=== PATIENT | female | born 1995 | race Caucasian/White ===

== ENCOUNTER 2017-12-15 22:52 | Emergency (ER) | payer MEDICAID, SELFPAY ==
[2017-12-15 22:53] VITALS: BP 165/80; PULSE 94; RESP 16; TEMP 36.4; O2SAT 97; BMI 60.2
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
== END 2017-12-15 23:28 | disposition home or self-care (01) ==
LOC: ED 23:22
PROVIDERS: Emergency Provider Emergency Medicine; Family Provider Student in an Organized Health Care Education/Training Program; PCP Student in an Organized Health Care Education/Training Program
DX: S16.1XXA Strain of muscle, fascia and tendon at neck level, initial encounter (principal); V89.2XXA Person injured in unspecified motor-vehicle accident, traffic, initial encounter; Y93.9 Activity, unspecified; Y92.9 Unspecified place or not applicable; I10 Essential (primary) hypertension; K58.9 Irritable bowel syndrome, unspecified; F90.9 Attention-deficit hyperactivity disorder, unspecified type; R73.03 Prediabetes; Z90.49 Acquired absence of other specified parts of digestive tract; Z79.84 Long term (current) use of oral hypoglycemic drugs; Z79.899 Other long term (current) drug therapy
CPT/HCPCS: 99282

== ENCOUNTER 2018-04-14 20:29 | Emergency (ER) | payer MEDICAID, SELFPAY ==
[2018-04-14 20:29] VITALS: BP 146/86; PULSE 99; RESP 16; TEMP 36.2; O2SAT 96; BMI 52.7
--- NOTE | 2018-04-14 21:42 | ED.VISSUMM ---
- ER Visit Summary Date of Service: 04/14/18 Chief Complaint: Foreign body sensation throat History of Present Illness: The patient is a 22 F who states she took for large pills. She vomited and only 3 of the pills came up. She is complaining of pain that she localizes right anterior neck at the level of the larynx. She denies trouble with speech or swallowing. She denies change in voice. She denies drooling. She is had something to drink and eat since. She believes that the pill was still stuck. Physical Examination: Vital signs noted. Blood pressure is elevated 146/86. BMI is 52.7. Head is atraumatic normocephalic. Pupils equal round reactive paradoxic muscle intact. Sclerae anicteric. Conjunctive is not injected. Nares patent. Uvula is midline. Posterior pharynx unremarkable. Trachea is midline. There is no stridor. There is no cervical lymphadenopathy. No carotid bruit. Heart is regular without murmur, gallop or rub. Lungs are clear to auscultation. Test Results: Patient had indirect laryngoscopy performed using a dental mirror after she was anesthetized. Emergency Department Course and Treatment: Patient was insistent was a foreign body. She was informed that I would gladly look with a dental mirror to see if there is any foreign body noted. Treatment Plan: Indirect laryngoscopy, no foreign body seen presume abrasion Disposition: Discharged home Impression: Foreign body sensation throat secondary to abrasion This note was generated with [employer] dictation software. It may contain incorrect words, spelling, and punctuation that were not noted in review of the chart prior to signing ED Disposition - Plan for ED Patient: Disposition: Home or Assisted Living Chief Complaint: Foreign Body Instructions: ED Foreign Body Swallowed Adult Referrals: Michael Alfaro DO [Primary Care Provider] - As Needed
== END 2018-04-14 21:53 | disposition home or self-care (01) ==
PROVIDERS: Emergency Provider Emergency Medicine; Family Provider Student in an Organized Health Care Education/Training Program; PCP Student in an Organized Health Care Education/Training Program
DX: S10.11XA Abrasion of throat, initial encounter (principal); R09.89 Other specified symptoms and signs involving the circulatory and respiratory systems; X58.XXXA Exposure to other specified factors, initial encounter; Y93.9 Activity, unspecified; Y92.9 Unspecified place or not applicable; E66.9 Obesity, unspecified; Z68.43 Body mass index [BMI] 50.0-59.9, adult; J44.9 Chronic obstructive pulmonary disease, unspecified; K21.9 Gastro-esophageal reflux disease without esophagitis; E11.9 Type 2 diabetes mellitus without complications; I10 Essential (primary) hypertension; F32.9 Major depressive disorder, single episode, unspecified; Z79.84 Long term (current) use of oral hypoglycemic drugs; Z79.899 Other long term (current) drug therapy; Z72.0 Tobacco use
CPT/HCPCS: 99282

== ENCOUNTER → 2020-02-15 17:20 | Outpatient (CLI) | payer MEDICAID, SELFPAY | PROVIDERS: PCP Student in an Organized Health Care Education/Training Program; Referring Provider Nurse Practitioner Family; Visit Provider Nurse Practitioner Family | DX: Z11.59 Encounter for screening for other viral diseases (principal) | CPT/HCPCS: 87635; C9803; U0003 ==

== ENCOUNTER 2021-08-26 10:49 | Emergency (ER) | payer MEDICAID, SELFPAY ==
[2021-08-26 10:50] VITALS: BP 177/83; PULSE 98; RESP 20; TEMP 36.6; O2SAT 97; BMI 60.1
--- NOTE | 2021-08-26 11:06 | EDS_ITS ---
HPI History of Present Illness Chief Complaint: Palpitations Onset/Context/Timing Onset: Yesterday Activity at onset: onset (unsure) and rest Timing: Continuous and Waxes and wanes Quality: Positive for - (like a leg muscle spasm in my chest) Location: Substernal (without radiation) Current Severity: Mild Maximum Severity: Severe Worsened By: Nothing Relieved By: Nothing Associated Symptoms: Positive for Palpitations (racing at times); Negative for Nausea, Vomiting, Diaphoresis, Dyspnea, Cough and Lightheadedness Narrative Narrative: Patient has complained of a palpitations with her heart racing at times since yesterday after she had this discomfort started. The discomfort has been constant, but she has not felt the palpitations the whole time. She is more likely to feel the palpitations when the discomfort is more significant. She denies any lightheadedness or near syncope/syncope. She denies any leg swelling. No recent illness or fevers. She takes medications for lots of medical problems including ADHD, none of those have changed recently, she has taken no [id number] medications that are new, no URIs or decongestants r ecently, and she does not use any illicit substances. She has never had this before. She went to urgent care prior to being sent here. She states they checked her heart rate and it was in the 120s and they did not check anything else since told her to come right to the hospital. [facility] Medical History (Updated 08/26/21 @ 12:[address] George Perea MD) ADHD HTN (hypertension) Hypothyroid PMDD (premenstrual dysphoric disorder) Prediabetes Home Medications Cetirizine Hcl [Zyrtec] 10 mg PO DAILY 06/27/13 [History Last Taken Unknown] Vyvanse 70 mg PO DAILY 06/27/13 [History Last Taken Unknown] dextroamphetamine-amphetamine [Adderall] 20 mg PO PRN PRN 06/27/13 [History Last Taken Unknown] Beclomethasone Diprop Inhaler [Qvar 80 Mcg Inhaler] 1 puff INHALATION BID 05/14/17 [History Last Taken Unknown] Ranitidine [Zantac] 150 mg PO DAILY 05/14/17 [History Last Taken Unknown] albuterol sulfate [Ventolin HFA] 1 puff INHALATION Q6H PRN PRN 05/14/17 [History Last Taken Unknown] amlodipine 10 mg PO DAILY 05/14/17 [History Last Taken Unknown] desogestrel-ethinyl estradiol [Enskyce] 1 tab PO DAILY 05/14/17 [History Last Taken Unknown] dicyclomine 20 mg PO DAILY 05/14/17 [History Last Taken Unknown] metformin 1 tab PO DAILY 05/14/17 [History Last Taken Unknown] psyllium husk [Metamucil] 2.08 g PO DAILY 05/14/17 [History Last Taken Unknown] trazodone 200 mg PO QHS 12/15/17 [History Last Taken Unknown] chlorhexidine gluconate 1 ea TOPICAL X1 04/14/18 [History Last Taken Unknown] metoprolol succinate 25 mg PO DAILY 04/14/18 [History Last Taken Unknown] sertraline 100 mg PO DAILY 04/14/18 [History Last Taken Unknown] Allergy/AdvReac Type Severity Reaction Status Date / Time erythromycin base Allergy Rash Verified 08/26/21 10:52 [Erythromycin Base] ibuprofen Allergy Anaphylaxis Verified 08/26/21 10:52 Surgical History History of cholecystectomy Social History Smoking Status: Never smoker ROS ROS ED Constitutional Constitutional ED: Denies chills or fever(s) Eyes Eyes: Denies change in vision or diplopia ENT ENT ED: Denies rhinorrhea or sore throat Cardiovascular Cardiovascular: Reports as per HPI, chest pain and palpitations; Denies lightheadedness or pedal edema Respiratory/Chest Respiratory/Chest: Denies cough, dyspnea or dyspnea on exertion Gastrointestinal Gastrointestinal: Denies abdominal pain, diarrhea, nausea or vomiting Genitourinary Genitourinary ED: Denies dysuria or hematuria Musculoskeletal Musculoskeletal: Denies back pain or neck pain Integumentary Denies abscess or rash Neurologic Neurologic: Denies headache(s), paresthesias or weakness Psychiatric Psychiatric: Denies anxiety or suicidal thoughts EXAM Physical Exam Const Vital Signs: 08/26/21 10:50 08/26/21 11:12 Temperature 97.9 F Temperature Source Temporal Pulse Rate 98 Respiratory Rate 20 H Respiratory Effort Normal Blood Pressure 177/83 H Blood Pressure Mean 114 Pulse Ox 97 Oxygen Delivery Method Room Air Positive well nourished and well developed Constitutional Narrative: well-appearing General Appearance ED: well developed and NAD Nutritional Appearance: morbidly obese HEENT Reports moist mucous membranes normocephalic and atraumatic Eyes PERRL and EOMs intact bilaterally Neck full ROM and supple Resp normal respiratory effort and clear to auscultation bilaterally Effort and Inspection: able to speak in complete sentences Cardio regular rate, regular rhythm, no murmurs, no JVD and peripheral pulses 2+ throughout Rate: tachycardic GI non-tender and non-distended Auscultation: normoactive bowel sounds Palpation: soft Back/Spine no CVA tenderness General Back: other FROM Extremity normal to inspection and no calf tenderness General Extremety ED: Negative for edema, pulses abnormal or tenderness General Extremity: Negative for edema or pulses abnormal Neuro oriented x3, CN's II-XII intact bilaterally and no sensory deficits noted Sensorium / Orientation: awake and alert Motor Exam: strength 5/5 throughout Skin no rashes or lesions noted and no wounds Heart Score History: Slightly/Non-Suspicious ECG: Normal Age: </= 45 years Risk Factors: >/= 3 Risk Factors or History of CAD Troponin: </= Normal Limit Score: 2 MDM MDM MDM Narrative Medical decision making narrative: Work-up here is negative including TSH. Initially the patient got here she was slightly tachycardic. With observation and her heart rate came down to the 70s, sinus rhythm on the monitor, asymptomatic on reevaluation. Spoke with respiratory and we do have an available Holter monitor so we placed a 48-hour Holter on her prior to discharge, she was given appropriate instructions to follow-up with her PCP regarding the results and further instructions/referrals if needed. Lab Data Attestation: I reviewed the patient's lab results. Labs: Laboratory Results - last 24 hr 08/26/21 08/26/21 11:20 11:20 WBC 9.7 RBC 5.24 Hgb 13.8 Hct 42.8 MCV 81.7 MCH 26.3 L MCHC 32.2 RDW Std Deviation 39.2 RDW Coeff of Heriberto 13.2 Plt Count 347 MPV 10.8 Immature Gran % (Auto) 0.500 Neut % (Auto) 63.2 Lymph % (Auto) 29.4 Fountain % (Auto) 4.5 Eos % (Auto) 1.8 Baso % (Auto) 0.6 Absolute Neuts (auto) 6.2 Absolute Lymphs (auto) 2.86 Nucleated RBC % 0 Sodium 139 Potassium 3.5 Chloride 107 Carbon Dioxide 23.0 Anion Gap 9 BUN 14 Creatinine 0.55 Estim Creat Clear Calc 123.67 Est GFR (MDRD) Af Amer 172 Est GFR (MDRD) Non-Af 142 BUN/Creatinine Ratio 25.3 H Glucose 92 Calcium 9.1 Troponin I High Sens < 3 L TSH 1.00 Rhythm Strip Rhythm Strip: Sinus Rhythm (Later on reevaluation after EKG) Rate: 76 Ectopy: None EKG Initial EKG: Attestation: I personally reviewed and interpreted this EKG as follows: Interpretation: No Acute Injury Pattern and Sinus Tachycardia (otherwise nml; rate 101) Discharge Plan Triage Chief Complaint: Palpitations ED Provider: George Perea Dx/Rx/DC Orders Clinical Impression: Palpitations, Chest pain, unspecified Instructions: ED Palpitations Prescriptions: Continued dextroamphetamine-amphetamine [Adderall] 20 MG tablet 20 mg PO PRN PRN (Reason: Agitation) RF: 0 Vyvanse 70 MG capsule 70 mg PO DAILY RF: 0 Cetirizine Hcl [Zyrtec] 10 MG tablet 10 mg PO DAILY RF: 0 desogestrel-ethinyl estradiol [Enskyce] 1 EACH tablet 1 tab PO DAILY RF: 0 amlodipine 10 MG tablet 10 mg PO DAILY RF: 0 albuterol sulfate [Ventolin HFA] 1 INHALER inhaler 1 puff inhalation Q6H PRN PRN (Reason: Shortness Of Breath) RF: 0 dicyclomine 10 MG capsule 20 mg PO DAILY RF: 0 psyllium husk [Metamucil] 0.52 GM capsule 2.08 g PO DAILY RF: 0 metformin 750 MG tablet extended release 24 hr 1 tab PO DAILY RF: 0 Beclomethasone Diprop Inhaler [Qvar 80 Mcg Inhaler] 1 PUFF inhaler 1 puff inhalation BID RF: 0 Ranitidine [Zantac] 150 MG tablet 150 mg PO DAILY RF: 0 trazodone 100 MG tablet 200 mg PO QHS RF: 0 sertraline 100 MG tablet 100 mg PO DAILY RF: 0 metoprolol succinate 25 MG tablet extended release 24 hr 25 mg PO DAILY RF: 0 chlorhexidine gluconate 1 EACH towelette 1 ea topical X1 RF: 0 Stand Alone Forms: ED Work / School Excuse Primary Care Provider: Michael Alfaro Referrals: Michael Alfaro DO [Primary Care Provider] - 3-5 Days Disposition Disposition: Home, Self Care
--- NOTE | 2021-08-26 11:06 | EKG12_ITS ---
Test Reason : PALPS Blood Pressure : / mmHG Vent. Rate : 101 BPM Atrial Rate : 101 BPM P-R Int : 158 ms QRS Dur : 088 ms QT Int : 354 ms P-R-T Axes : 033 025 -02 degrees QTc Int : 459 ms Sinus tachycardia Otherwise normal ECG Confirmed by DEANNA DONALDSON, CHOCO ([id number]), electronic news gathering editor LATONIA CASTLE ([id number]) on 08/27/2021 9:49:01 AM Referred By: TAMIKO Confirmed By:CHOCO HUERTA MD
--- NOTE | 2021-08-26 11:12 | NURSING ---
NO OLD EKGS
[2021-08-26 11:27] LABS: Absolute Lymphocyte Count 2.86 X10^3/uL (0.83-4.51); Absolute Neutrophil Count 6.2 X10^3/uL (2.0-7.7); Basophil# 0.06 X10^3/uL; Basophil% 0.6 % (0-1); Eosinophil# 0.18 X10^3/uL; Eosinophils% 1.8 % (0-5); Hematocrit 42.8 % (37-47); Hemoglobin 13.8 g/dL (12.0-15.0); Lymphocyte # 2.86 X10^3/ul (0.83-4.51); Lymphocyte % 29.4 % (19-41); Mean Corp Hgb Conc 32.2 g/dL (32-36); Mean Corpuscular Hgb 26.3 pg (27.0-32.0); Mean Corpuscular Volume 81.7 fL (81-99); Mean Platelet Vol. 10.8 fl (6.2-12.0); Monocyte# 0.44 X10^3/uL; Monocyte% 4.5 % (0-10); NRBC Flagged by Analyzer 0 % (0-5); Neutrophil # 6.15 X10^3/uL (2.7-7.7); Neutrophil % 63.2 % (47-70); Platelet Count 347 K/mm3 (150-450); RBC Distribution Width CV 13.2 % (11.6-14.6); RBC Distribution Width SD 39.2 fl (35.1-43.9); Red Blood Count 5.24 M/mm3 (4.2-5.4); White Blood Count 9.7 K/mm3 (4.4-11.0)
[2021-08-26 11:49] LABS: Anion Gap 9 (5-15); BUN 14 mg/dL (7-18); BUN/Creat Ratio 25.3 RATIO (10-20); Calcium,Total 9.1 mg/dL (8.5-10.1); Chloride 107 mmol/L (98-107); Creatinine, Serum 0.55 mg/dL (0.55-1.02); EST Glomerular Filtration Rate 142 mL/min (>60); Est Glom Filt Rate - Afr Amer 172 mL/min (>60); Estimated Creatinine Clearance 123.67 ml/min; Glucose 92 mg/dL (74-106); Potassium 3.5 mmol/L (3.5-5.1); Sodium Level 139 mmol/L (136-145); Troponin-I HS < 3 pg/mL (3.0-54.0)
[2021-08-26 13:13] VITALS: PULSE 78; RESP 18
== END 2021-08-26 13:34 | disposition home or self-care (01) ==
PROVIDERS: Emergency Provider Emergency Medicine; PCP Student in an Organized Health Care Education/Training Program; Visit Provider Emergency Medicine
DX: R00.2 Palpitations (principal); E66.01 Morbid (severe) obesity due to excess calories; Z68.44 Body mass index [BMI] 60.0-69.9, adult; R07.9 Chest pain, unspecified; I10 Essential (primary) hypertension; E03.9 Hypothyroidism, unspecified; R73.03 Prediabetes; F90.9 Attention-deficit hyperactivity disorder, unspecified type; R00.0 Tachycardia, unspecified; Z79.84 Long term (current) use of oral hypoglycemic drugs; Z79.899 Other long term (current) drug therapy
CPT/HCPCS: 36415; 80048; 84443; 84484; 85025; 93005; 93225; 93226; 99285; A4216

== ENCOUNTER → 2021-08-26 | Outpatient (CLI) | payer MEDICAID, SELFPAY | END | disposition home or self-care (01) | LOC: CVS 13:17 | PROVIDERS: PCP Student in an Organized Health Care Education/Training Program; Visit Provider Emergency Medicine | DX: R00.0 Tachycardia, unspecified (principal) | CPT/HCPCS: 93225; 93226 ==